=== PATIENT | male | born 1980 | race Caucasian/White ===

== ENCOUNTER 2016-04-26 19:22 | Emergency (ER) | payer OTHER ==
[~2016-04-26] VITALS: Ht 180.3 cm; Wt 104.3 kg
[~2016-04-26 19:22] MED LIST: ANAPROX DS550 MG PO; BACTRIM DS 8001 TA1 PO; CILOXAN 5 ML5 M1 OP; CLINDAMYCIN HC300 MG PO; FLEXERIL10 MG PO; FLOMAX0.4 MG PO; HYDROCODONE BIT1 T11 PO; KEFLEX500 MG PO; MOTRIN800 MG PO; NAPROSYN500 MG PO; NKHM; PERCOCET 325 MG1 TAB PO; TRAMADOL HCL50 MG PO; VICODIN 5/500 505 MG PO; ZOFRAN ODT4 MG SL
[2016-04-26 19:45] VITALS: BP 145/78
[2016-04-26] MEDS ORDERED: ANAPROX DS550 MG PO (21:36)
[2016-04-26] MEDS ORDERED: CYCLOBENZAPRINE5 M3 PO (21:36)
== END 2016-04-26 21:22 | disposition home or self-care (01) ==
LOC: ED 19:22
DX: M54.12 Radiculopathy, cervical region (principal); F17.200 Nicotine dependence, unspecified, uncomplicated; Z87.442 Personal history of urinary calculi

== ENCOUNTER 2016-08-23 11:37 | Emergency (ER) | payer OTHER ==
[~2016-08-23] VITALS: Ht 177.8 cm; Wt 102.1 kg
[~2016-08-23 11:37] MED LIST changes: +CYCLOBENZAPRINE5 M3 PO
[2016-08-23 11:46] VITALS: BP 159/90
[2016-08-23] MEDS ORDERED: CIPRO500 MG PO (13:44)
== END 2016-08-23 13:46 | disposition home or self-care (01) ==
LOC: ED 11:37
DX: S61.233A Puncture wound without foreign body of left middle finger without damage to nail, initial encounter (principal); F17.200 Nicotine dependence, unspecified, uncomplicated; Z98.890 Other specified postprocedural states; W22.8XXA Striking against or struck by other objects, initial encounter; Y93.89 Activity, other specified; Y92.69 Other specified industrial and construction area as the place of occurrence of the external cause; Y99.9 Unspecified external cause status

== ENCOUNTER 2017-05-11 13:07 | Emergency (ER) | payer OTHER ==
[~2017-05-11] VITALS: Ht 182.8 cm; Wt 104.3 kg
[~2017-05-11 13:07] MED LIST changes: +CIPRO500 MG PO
[2017-05-11 13:28] VITALS: BP 144/79
[2017-05-11] MEDS ORDERED: ADDERALL 20 MG20 MG PO (13:28)
[2017-05-11] MEDS ORDERED: ROBITUSSIN DM 105 ML PO (15:52)
[2017-05-11] MEDS ORDERED: PREDNISONE20 M1 PO (15:52)
== END 2017-05-11 16:05 | disposition home or self-care (01) ==
LOC: ED 13:07
DX: B34.9 Viral infection, unspecified (principal); F17.200 Nicotine dependence, unspecified, uncomplicated; Z98.890 Other specified postprocedural states; Z79.899 Other long term (current) drug therapy

== ENCOUNTER 2017-10-01 14:02 | Emergency (ER) | payer OTHER ==
[~2017-10-01] VITALS: Ht 182.8 cm
[~2017-10-01 14:02] MED LIST changes: +ADDERALL 20 MG20 MG PO; +PREDNISONE20 M1 PO; +ROBITUSSIN DM 105 ML PO
[2017-10-01 14:06] VITALS: BP 128/76
[2017-10-01] MEDS ORDERED: Motrin,Rufen800 MG PO (15:17)
== END 2017-10-01 15:14 | disposition home or self-care (01) ==
LOC: ED 14:02
DX: S63.501A Unspecified sprain of right wrist, initial encounter (principal); Z98.890 Other specified postprocedural states; Z79.899 Other long term (current) drug therapy; X50.1XXA Overexertion from prolonged static or awkward postures, initial encounter; Y93.89 Activity, other specified; Y92.89 Other specified places as the place of occurrence of the external cause; Y99.9 Unspecified external cause status

== ENCOUNTER 2017-12-12 03:21 | Emergency (ER) | payer OTHER ==
[~2017-12-12] VITALS: Ht 182.8 cm; Wt 104.3 kg
[~2017-12-12 03:21] MED LIST changes: +Motrin,Rufen800 MG PO
[2017-12-12 03:44] LABS: BASO # 0.1 10*3/uL (0.0-0.1); BASO % 0.5 % (0.0-1.0); EOS # 0.2 10*3/uL (0.0-0.4); EOS % 1.5 % (1.0-4.0); HEMATOCRIT 46.5 % (42.0-52.0); HEMOGLOBIN 15.9 g/dl (14.0-18.0); LYMPH # 3.7 10*3/uL (1.3-4.4); LYMPH % 28.7 % (27.0-41.0); MEAN CELL VOLUME 84.7 fl (80.0-94.0); MEAN CORPUSCULAR HGB CONC 34.2 g/dl (33.0-37.0); MEAN PLATELET VOLUME 11.8 fl (9.6-12.3); MONO # 1.1 10*3/uL (0.1-1.0); MONO % 8.4 % (3.0-9.0); NEUT # 7.7 10*3/uL (2.3-7.9); NEUT % 60.5 % (47.0-73.0); PLATELET COUNT AUTOMATED 184 10*3/uL (130-400); RED BLOOD COUNT 5.49 10*6/uL (4.50-5.90); RED CELL DISTRI WIDTH 12.6 % (0-14.5); WHITE BLOOD COUNT 12.7 10*3/uL (4.8-10.8)
[2017-12-12 04:02] LABS: ALKALINE PHOSPHATASE 113 U/L (45-117); BUN 17 mg/dl (7-24); CHLORIDE 104 mmol/L (98-107); CREATININE 0.92 mg/dL (0.70-1.30); LIPASE 284 U/L (73-393); POTASSIUM 3.7 mmol/L (3.5-5.1); SGOT/AST 33 IU/L (3-35); SGPT/ALT 52 U/L (12-78); SODIUM 138 mmol/L (136-145); TOTAL PROTEIN 7.7 gm/dL (6.4-8.2)
[2017-12-12 05:08] VITALS: BP 152/82
[2017-12-12] MEDS ORDERED: PANTOPRAZOLE SO20 MG PO (06:11)
== END 2017-12-12 06:09 | disposition home or self-care (01) ==
LOC: ED 03:21
PROVIDERS: Student in an Organized Health Care Education/Training Program
DX: R10.12 Left upper quadrant pain (principal); R05 Cough; R04.2 Hemoptysis; Z87.442 Personal history of urinary calculi

== ENCOUNTER → 2021-03-31 | Outpatient (CLI) | payer OTHER ==
[~2021-03-31] MED LIST changes: +PANTOPRAZOLE SO20 MG PO
== END | disposition home or self-care (01) ==
LOC: COVID19 16:29
PROVIDERS: ATTEND Student in an Organized Health Care Education/Training Program
DX: U07.1 COVID-19 (principal)

== ENCOUNTER 2022-08-04 15:16 | Emergency (ER) | payer OTHER ==
[~2022-08-04] VITALS: Ht 182.8 cm; Wt 104.3 kg
[2022-08-04 15:31] VITALS: BP 145/68
[2022-08-04] MEDS ORDERED: IBU600 M1 PO (16:05)
== END 2022-08-04 16:09 | disposition home or self-care (01) ==
LOC: ED 15:16
DX: S92.425A Nondisplaced fracture of distal phalanx of left great toe, initial encounter for closed fracture (principal); W10.8XXA Fall (on) (from) other stairs and steps, initial encounter; Y93.89 Activity, other specified; Y92.89 Other specified places as the place of occurrence of the external cause; Y99.8 Other external cause status

== ENCOUNTER 2024-03-23 15:56 | Emergency (ER) | payer OTHER ==
[~2024-03-23] VITALS: Ht 182.8 cm; Wt 97.5 kg
[~2024-03-23 15:56] MED LIST changes: +IBU600 M1 PO
[2024-03-23 16:07] VITALS: BP 173/85
[2024-03-23] MEDS ORDERED: NAPROSYN500 MG PO (16:18)
[2024-03-23] MEDS ORDERED: PENICILLIN VK500 MG PO (16:18)
== END 2024-03-23 16:20 | disposition home or self-care (01) ==
LOC: ED 15:56
DX: K04.7 Periapical abscess without sinus (principal); F90.9 Attention-deficit hyperactivity disorder, unspecified type; Z87.442 Personal history of urinary calculi; Z98.890 Other specified postprocedural states

== ENCOUNTER 2025-03-19 11:43 | Emergency (ER) | payer OTHER ==
[~2025-03-19] VITALS: Ht 180.3 cm; Wt 95.3 kg
[~2025-03-19 11:43] MED LIST changes: +PENICILLIN VK500 MG PO
[2025-03-19 11:58] VITALS: BP 135/79
[2025-03-19] MEDS ORDERED: SODIUM CHLORIDE 0.9% 1,000 ML IV ONE (12:20)
[2025-03-19] MEDS ORDERED: Ondansetron Hydrochloride 4 MG/2 ML VIAL IV ONE (12:20)
[2025-03-19 12:33] LABS: BASO # 0.0 10*3/uL (0.0-0.1); BASO % 0.4 % (0.0-1.0); EOS # 0.1 10*3/uL (0.0-0.4); EOS % 0.7 % (1.0-4.0); MEAN CELL VOLUME 85.4 fl (80.0-94.0); MEAN CORPUSCULAR HGB 28.6 pg (27.0-31.0); MEAN PLATELET VOLUME 11.2 fl (9.6-12.3); MONO # 0.8 10*3/uL (0.1-1.0); MONO % 7.5 % (3.0-9.0); NEUT # 8.8 10*3/uL (2.3-7.9); NEUT % 78.2 % (47.0-73.0); NUCLEATED RED BLOOD CELL 0.0 % (0.0-0.0); NUCLEATED RED BLOOD CELL 0.0 10*3/uL (0.0-0.0); PLATELET COUNT AUTOMATED 171 10*3/uL (130-400); RED CELL DISTRI WIDTH 12.9 % (0-14.5)
[2025-03-19 12:52] LABS: BUN 21 mg/dl (9-23)
[2025-03-19 13:20] LABS: BILIRUBIN Negative (Negative); BLOOD 3+ (Negative); CLARITY Clear (Clear); COLOR Yellow (Yellow); KETONE Negative (Negative); LEUKO ESTERASE Negative (Negative); NITRITE Negative (Negative); PH 7.0 (4.5-8.0); SPECIFIC GRAVITY 1.015 (1.001-1.030); UROBILINOGEN 1.0 E.U./dl (0.0-1.0)
[2025-03-19 13:27] LABS: BACTERIA 1+; MUCOUS 1+; RBC TNTC rbc/hpf (0-2)
[2025-03-19] MEDS ORDERED: Ondansetron4 MG PO (13:46)
[2025-03-19] MEDS ORDERED: TAMSULOSIN HCL0.4 MG PO (13:46)
[2025-03-19] MEDS ORDERED: PERCOCET 5-3251 EACH PO (13:46)
== END 2025-03-19 14:35 | disposition home or self-care (01) ==
LOC: ED 11:43
PROVIDERS: Emergency Medicine
DX: N13.4 Hydroureter (principal); R10.9 Unspecified abdominal pain; N21.0 Calculus in bladder; F90.9 Attention-deficit hyperactivity disorder, unspecified type; Z87.442 Personal history of urinary calculi